=== PATIENT | female | born 1945 | race Caucasian/White ===

== ENCOUNTER 2018-01-24 10:59 | Outpatient (CLI) | payer OTHER ==
[~2018-01-24 10:59] MED LIST: CATAFLAM50 MG PO; MICROZIDE12.5 MG PO; NABUMETONE500 MG PO; NORFLEX100MG PO; NORVASC10 MG PO; PERCOCET 5/3251 TAB PO; SYMBICORT 16010.2 GM; ZYRTEC10 M3 PO
== END 2018-01-24 11:25 | disposition home or self-care (01) ==
LOC: NUCLEAR 10:59
DX: M81.0 Age-related osteoporosis without current pathological fracture (principal); Z13.820 Encounter for screening for osteoporosis

== ENCOUNTER 2019-04-30 07:51 | Outpatient (CLI) | payer OTHER | END 2019-04-30 07:54 | disposition home or self-care (01) | LOC: SONOGRAMA 07:51 → MAMO-SONO 08:15 | DX: M54.5 Low back pain (principal); R05 Cough; E04.1 Nontoxic single thyroid nodule ==